=== PATIENT | female | born 1945 | race Caucasian/White ===

== ENCOUNTER → 2017-10-23 | Outpatient (CLI) | payer MEDICARE, OTHER, BC | END | disposition home or self-care (01) | LOC: HKI 11:10 | DX: M22.2X2 Patellofemoral disorders, left knee (principal); M76.32 Iliotibial band syndrome, left leg | CPT/HCPCS: 73564; 73564-50 ==

== ENCOUNTER → 2017-12-18 | Outpatient (CLI) | payer MEDICARE, OTHER | END | disposition home or self-care (01) | LOC: HKI 11:03 | DX: M23.252 Derangement of posterior horn of lateral meniscus due to old tear or injury, left knee (principal); M94.262 Chondromalacia, left knee; M25.462 Effusion, left knee | CPT/HCPCS: 20610 ==

== ENCOUNTER → 2018-01-23 | Outpatient (CLI) | payer MEDICARE, OTHER | END | disposition home or self-care (01) | LOC: HKI 11:05 | DX: M25.562 Pain in left knee (principal); M25.561 Pain in right knee | CPT/HCPCS: G0463 ==

== ENCOUNTER 2019-01-01 08:12 | Inpatient (IN) | payer MEDICARE, BC ==
[2019-01-01] MEDS: TRANEXAMIC ACID 1GM/100ML(PMX) 100 ML AT CLOSURE X1 IVPB ×2 (06:00→16:41)
[~2019-01-01 08:12] MED LIST: CLINDAMYCIN 600 MG/D5W (PMX) 50 ML IVPB
[2019-01-01] MEDS: ACETAMINOPHEN 1000MG/100ML IV 100 ML IVPB (11:03)
[2019-01-01] MEDS: DEXAMETHASONE 4 MG/ML 1 ML INJ IV (11:04)
[2019-01-01] MEDS: LACTATED RINGER'S 1,000 ML IV ×2 (11:04→15:05)
[2019-01-01] MEDS: TRANEXAMIC ACID 1GM/100ML(PMX) 100 ML AT INCISION X1 IVPB ×2 (11:43→12:23)
[2019-01-01] MEDS ORDERED: FENTAnyl 50 MCG/ML VIAL (11:49)
[2019-01-01] MEDS ORDERED: ROPIVACAINE 0.5 % 30 ML VIAL (11:49)
[2019-01-01] MEDS ORDERED: MIDAZOLAM 1 MG/ML 2 ML INJ (11:49)
[2019-01-01] MEDS ORDERED: PROPOFOL 100 ML (11:49)
[2019-01-01] MEDS ORDERED: HETASTARCH 6% NACL 500 ML (13:10)
[2019-01-01] MEDS ORDERED: ONDANSETRON 4 MG INJ (13:22)
[2019-01-01] MEDS ORDERED: METOCLOPRAMIDE 10 MG INJ (13:22)
[2019-01-01] MEDS ORDERED: KETOROLAC 30 MG INJ (13:22)
[2019-01-01] MEDS ORDERED: DEXAMETHASONE 4 MG/ML 5 ML INJ (13:22)
[2019-01-01] MEDS: POLYMYXIN B 500000 UNIT INJ IRR (13:27)
[2019-01-01] MEDS: BACITRACIN 50000 UNITS INJ IRR (13:27)
[2019-01-01] MEDS ORDERED: HYDROmorphONE 1 MG/5 ML IV SYRINGE IV ×3 (14:00)
[2019-01-01] MEDS ORDERED: OXYCODONE/ACETAMINOPHEN (5/325) TAB PO (14:00)
[2019-01-01] MEDS ORDERED: ONDANSETRON 4 MG INJ IV ×2 (14:00)
[2019-01-01] MEDS ORDERED: NALOXONE (0.4 MG/ML) INJ IV ×2 (14:00→15:30)
[2019-01-01] MEDS ORDERED: morphine 2 MG INJ IV ×2 (14:00)
[2019-01-01] MEDS ORDERED: EPHEDrine 25 MG/5 ML SYG IV (14:00)
[2019-01-01] MEDS ORDERED: HYDROCODONE/APAP (5/325) TAB PO (14:00)
[2019-01-01] MEDS ORDERED: FENTAnyl 50 MCG/ML VIAL IV ×3 (14:00)
[2019-01-01] MEDS ORDERED: NALBUPHINE HCL (10 MG/1 ML) INJ IV (14:00)
[2019-01-01] MEDS ORDERED: ACETAMINOPHEN 500 MG TAB PO (14:00)
[2019-01-01] MEDS ORDERED: DIPHENHYDRAMINE 50 MG INJ IV ×2 (14:00)
[2019-01-01] MEDS ORDERED: LABETALOL HCL 20MG INJ IV (14:00)
[2019-01-01] MEDS ORDERED: MEPERIDINE 25 MG INJ IV (14:00)
[2019-01-01] MEDS ORDERED: HYDROmorphONE 0.5 MG/0.5 ML SYG IV ×2 (14:00)
[2019-01-01] MEDS ORDERED: METOCLOPRAMIDE 10 MG INJ IV (14:00)
[2019-01-01] MEDS ORDERED: KETOROLAC 15 MG INJ IV ×2 (14:00→15:30)
[2019-01-01] MEDS ORDERED: hydrALAzine 20 MG INJ IV (14:00)
[2019-01-01] MEDS ORDERED: TRANEXAMIC ACID 1 GM/100 ML (14:02)
[2019-01-01] MEDS ORDERED: POLYMYXIN B 500000 UNIT INJ (14:53)
[2019-01-01] MEDS ORDERED: BACITRACIN 50000 UNITS INJ (14:54)
[2019-01-01] MEDS ORDERED: PHENYLephrine (100 MCG/ML) 10ML SYG (15:04)
[2019-01-01] MEDS ORDERED: EPHEDrine 25 MG/5 ML SYG (15:04)
[2019-01-01] MEDS ORDERED: PROPOFOL 20 ML (15:10)
[2019-01-01] MEDS: CLINDAMYCIN 900 MG/D5W (PMX) 50 ML IVPB ×2 (15:30→23:33)
[2019-01-01] MEDS ORDERED: MAGNESIUM HYDROXIDE 30ML CUP PO (15:30)
[2019-01-01] MEDS ORDERED: oxyCODONE 5 MG TAB PO ×2 (15:30)
[2019-01-01] MEDS ORDERED: DEXTROSE 50% 50 ML SYRINGE IV ×2 (19:00)
[2019-01-01] MEDS ORDERED: GLUCOSE GEL 15 GRAM TUBE PO ×2 (19:00)
[2019-01-01] MEDS ORDERED: GLUCAGON 1 MG INJ IM (19:00)
[2019-01-01] MEDS ORDERED: GLUCOSE GEL 15 GRAM TUBE BUCCAL (19:00)
[2019-01-01] MEDS: GABAPENTIN 100 MG CAP PO (20:07)
[2019-01-01] MEDS: INSULIN ASPART [NOVOLOG] 3 ML PEN SC (20:49)
[2019-01-01] MEDS: ACETAMINOPHEN 500 MG TAB PO ×2 (21:21→22:25)
[2019-01-02] MEDS: LACTATED RINGER'S 1,000 ML IV ×2 (01:25→16:05)
[2019-01-02 05:06] LABS: ADD MAN DIFF? NO
[2019-01-02 05:08] LABS: BASOPHILS % 0.1 % (0.0-2.0); HEMATOCRIT 28.8 % (37.0-47.0); HEMOGLOBIN 9.4 g/dl (12.0-16.0); LYMPHOCYTES # 0.8 10^3/ul (0.8-2.9); MEAN CORPUSCULAR HEMOGLOBIN 28.7 pg (29.0-33.0); MEAN CORPUSCULAR HGB CONC 32.6 g/dl (32.0-37.0); MEAN CORPUSCULAR VOLUME 87.8 fl (82.0-101.0); MEAN PLATELET VOLUME 11.5 fl (7.4-10.4); MONOCYTE # 0.6 10^3/ul (0.3-0.9); MONOCYTES % 4.8 % (0.0-11.0); NEUTROPHIL # 10.3 10^3/ul (1.6-7.5); NEUTROPHILS % 87.6 % (39.0-77.0); PLATELET COUNT 208 10^3/UL (140-415); RED BLOOD COUNT 3.28 10^6/ul (4.20-5.40); RED CELL DISTRIBUTION WIDTH 14.9 % (11.5-14.5)
[2019-01-02 05:08] LABS: WHITE BLOOD COUNT 11.8 10^3/ul (4.8-10.8)
[2019-01-02 05:32] LABS: ANION GAP 4 (5-13); BLOOD UREA NITROGEN 19 mg/dl (7-20); CALCIUM 8.7 mg/dl (8.4-10.2); CARBON DIOXIDE 26 mmol/L (21-31); CHLORIDE 110 mmol/L (97-110); CREATININE 0.84 mg/dl (0.44-1.00); GLUCOSE 160 mg/dl (70-220); SODIUM 140 mmol/L (135-144)
[2019-01-02] MEDS: CLINDAMYCIN 900 MG/D5W (PMX) 50 ML IVPB (06:47)
[2019-01-02] MEDS: INSULIN ASPART [NOVOLOG] 3 ML PEN SC ×4 (07:50→21:00)
[2019-01-02] MEDS: ACCU-CHEK XX ×4 (08:15→21:00)
[2019-01-02] MEDS: DOCUSATE SODIUM 100 MG CAP PO ×2 (08:18→21:00)
[2019-01-02] MEDS: ASPIRIN (EC) 81 MG TAB PO ×2 (08:19→22:53)
[2019-01-02] MEDS: metFORMIN 500 MG TAB PO ×2 (08:19→17:46)
[2019-01-02] MEDS ORDERED: TURMERIC ROOT EXTRACT 1000 MG PO (09:00)
[2019-01-02] MEDS ORDERED: TELMISARTAN AMLODIPINE PO (09:00)
[2019-01-02] MEDS ORDERED: CELECOXIB 100 MG CAP PO (09:00)
[2019-01-02] MEDS: ACETAMINOPHEN 500 MG TAB PO ×2 (12:42→22:34)
[2019-01-02] MEDS ORDERED: ONDANSETRON 4 MG INJ IV (15:30)
[2019-01-02] MEDS: IBUPROFEN 600 MG TAB PO (18:15)
[2019-01-03] MEDS: LACTATED RINGER'S 1,000 ML IV ×2 (04:35→16:33)
[2019-01-03] MEDS: PANTOPRAZOLE (EC) 40 MG TAB PO (07:15)
[2019-01-03] MEDS: ACETAMINOPHEN 500 MG TAB PO ×3 (07:15→18:27)
[2019-01-03] MEDS: INSULIN ASPART [NOVOLOG] 3 ML PEN SC ×4 (07:50→20:25)
[2019-01-03] MEDS: ACCU-CHEK XX ×4 (08:30→21:00)
[2019-01-03] MEDS: metFORMIN 500 MG TAB PO ×2 (08:33→18:02)
[2019-01-03] MEDS: ASPIRIN (EC) 81 MG TAB PO ×3 (08:33→22:35)
[2019-01-03] MEDS: DOCUSATE SODIUM 100 MG CAP PO ×2 (08:35→20:22)
[2019-01-03 08:38] LABS: ADD MAN DIFF? NO
[2019-01-03 08:47] LABS: WHITE BLOOD COUNT 7.9 10^3/ul (4.8-10.8)
[2019-01-03 08:47] LABS: BASOPHIL # 0.1 10^3/ul (0.0-0.1); BASOPHILS % 0.6 % (0.0-2.0); EOSINOPHILS # 0.1 10^3/ul (0.0-0.5); HEMATOCRIT 27.5 % (37.0-47.0); HEMOGLOBIN 8.8 g/dl (12.0-16.0); LYMPHOCYTES # 1.3 10^3/ul (0.8-2.9); LYMPHOCYTES % 16.3 % (15.0-51.0); MEAN CORPUSCULAR HEMOGLOBIN 28.2 pg (29.0-33.0); MEAN CORPUSCULAR VOLUME 88.1 fl (82.0-101.0); MEAN PLATELET VOLUME 12.6 fl (7.4-10.4); MONOCYTE # 0.6 10^3/ul (0.3-0.9); MONOCYTES % 7.1 % (0.0-11.0); NEUTROPHIL # 5.9 10^3/ul (1.6-7.5); NEUTROPHILS % 74.6 % (39.0-77.0); PLATELET COUNT 186 10^3/UL (140-415); RED BLOOD COUNT 3.12 10^6/ul (4.20-5.40); RED CELL DISTRIBUTION WIDTH 15.1 % (11.5-14.5)
[2019-01-03 09:04] LABS: ANION GAP 4 (5-13); BLOOD UREA NITROGEN 24 mg/dl (7-20); CALCIUM 8.4 mg/dl (8.4-10.2); CARBON DIOXIDE 27 mmol/L (21-31); CHLORIDE 106 mmol/L (97-110); CREATININE 0.92 mg/dl (0.44-1.00); GLUCOSE 130 mg/dl (70-220); POTASSIUM 3.9 mmol/L (3.5-5.1); SODIUM 137 mmol/L (135-144)
[2019-01-03] MEDS ORDERED: DIPHENHYDRAMINE 25 MG CAP PO (11:30)
[2019-01-03] MEDS: IBUPROFEN 600 MG TAB PO ×2 (13:03→22:02)
[2019-01-03] MEDS: GABAPENTIN 300 MG CAP PO (22:03)
[2019-01-03] MEDS: NACL 0.9% 3 ML SYG IV (22:35)
[2019-01-04 04:58] LABS: ADD MAN DIFF? NO
[2019-01-04 05:17] LABS: WHITE BLOOD COUNT 7.4 10^3/ul (4.8-10.8)
[2019-01-04 05:17] LABS: BASOPHIL # 0.1 10^3/ul (0.0-0.1); BASOPHILS % 1.2 % (0.0-2.0); EOSINOPHILS # 0.3 10^3/ul (0.0-0.5); HEMATOCRIT 28.2 % (37.0-47.0); LYMPHOCYTES % 26.8 % (15.0-51.0); MEAN CORPUSCULAR HEMOGLOBIN 28.6 pg (29.0-33.0); MEAN CORPUSCULAR HGB CONC 31.9 g/dl (32.0-37.0); MEAN CORPUSCULAR VOLUME 89.5 fl (82.0-101.0); MEAN PLATELET VOLUME 12.4 fl (7.4-10.4); MONOCYTE # 0.8 10^3/ul (0.3-0.9); MONOCYTES % 10.1 % (0.0-11.0); NEUTROPHIL # 4.3 10^3/ul (1.6-7.5); NEUTROPHILS % 57.6 % (39.0-77.0); PLATELET COUNT 201 10^3/UL (140-415); RED BLOOD COUNT 3.15 10^6/ul (4.20-5.40); RED CELL DISTRIBUTION WIDTH 15.6 % (11.5-14.5)
[2019-01-04] MEDS: LACTATED RINGER'S 1,000 ML IV (05:35)
[2019-01-04 05:57] LABS: ANION GAP 1 (5-13); BLOOD UREA NITROGEN 19 mg/dl (7-20); CALCIUM 8.7 mg/dl (8.4-10.2); CARBON DIOXIDE 29 mmol/L (21-31); CHLORIDE 108 mmol/L (97-110); CREATININE 0.95 mg/dl (0.44-1.00); GLUCOSE 116 mg/dl (70-220); SODIUM 138 mmol/L (135-144)
[2019-01-04] MEDS: PANTOPRAZOLE (EC) 40 MG TAB PO (07:31)
[2019-01-04] MEDS: IBUPROFEN 600 MG TAB PO ×2 (07:32→17:40)
[2019-01-04] MEDS: INSULIN ASPART [NOVOLOG] 3 ML PEN SC ×4 (07:50→21:00)
[2019-01-04] MEDS: ACCU-CHEK XX ×4 (08:25→21:00)
[2019-01-04] MEDS: ASPIRIN (EC) 81 MG TAB PO ×2 (08:47→20:09)
[2019-01-04] MEDS: metFORMIN 500 MG TAB PO ×2 (08:47→17:39)
[2019-01-04] MEDS: LOSARTAN 50 MG TAB PO (08:48)
[2019-01-04] MEDS: DOCUSATE SODIUM 100 MG CAP PO ×2 (08:48→20:09)
[2019-01-04] MEDS: AMLODIPINE 5 MG TAB PO (08:48)
[2019-01-04] MEDS: ACETAMINOPHEN 500 MG TAB PO ×2 (12:06→20:09)
[2019-01-05] MEDS: IBUPROFEN 600 MG TAB PO ×3 (00:04→12:19)
[2019-01-05 05:26] LABS: ADD MAN DIFF? NO
[2019-01-05 05:28] LABS: BASOPHIL # 0.1 10^3/ul (0.0-0.1); BASOPHILS % 0.6 % (0.0-2.0); EOSINOPHILS # 0.5 10^3/ul (0.0-0.5); EOSINOPHILS % 5.6 % (0.0-7.0); HEMATOCRIT 28.5 % (37.0-47.0); HEMOGLOBIN 9.3 g/dl (12.0-16.0); LYMPHOCYTES % 24.5 % (15.0-51.0); MEAN CORPUSCULAR HEMOGLOBIN 28.8 pg (29.0-33.0); MEAN CORPUSCULAR HGB CONC 32.6 g/dl (32.0-37.0); MEAN CORPUSCULAR VOLUME 88.2 fl (82.0-101.0); MEAN PLATELET VOLUME 12.7 fl (7.4-10.4); MONOCYTE # 0.8 10^3/ul (0.3-0.9); MONOCYTES % 9.3 % (0.0-11.0); NEUTROPHIL # 4.9 10^3/ul (1.6-7.5); NEUTROPHILS % 59.8 % (39.0-77.0); PLATELET COUNT 224 10^3/UL (140-415); RED BLOOD COUNT 3.23 10^6/ul (4.20-5.40); RED CELL DISTRIBUTION WIDTH 15.3 % (11.5-14.5)
[2019-01-05 05:28] LABS: WHITE BLOOD COUNT 8.2 10^3/ul (4.8-10.8)
[2019-01-05 06:17] LABS: ANION GAP 4 (5-13); BLOOD UREA NITROGEN 16 mg/dl (7-20); CALCIUM 8.8 mg/dl (8.4-10.2); CARBON DIOXIDE 27 mmol/L (21-31); CHLORIDE 108 mmol/L (97-110); CREATININE 0.95 mg/dl (0.44-1.00); GLUCOSE 118 mg/dl (70-220); POTASSIUM 4.3 mmol/L (3.5-5.1); SODIUM 139 mmol/L (135-144)
[2019-01-05] MEDS: INSULIN ASPART [NOVOLOG] 3 ML PEN SC ×2 (07:50→11:40)
[2019-01-05] MEDS: ACCU-CHEK XX ×3 (08:20→17:25)
[2019-01-05] MEDS: ASPIRIN (EC) 81 MG TAB PO (08:24)
[2019-01-05] MEDS: PANTOPRAZOLE (EC) 40 MG TAB PO (08:24)
[2019-01-05] MEDS: metFORMIN 500 MG TAB PO ×2 (08:24→17:25)
[2019-01-05] MEDS: ACETAMINOPHEN 500 MG TAB PO ×2 (08:24→16:03)
[2019-01-05] MEDS: LOSARTAN 50 MG TAB PO (08:25)
[2019-01-05] MEDS: AMLODIPINE 5 MG TAB PO (08:25)
== END 2019-01-05 17:40 | DRG 462 ==
LOC: REC 08:12 → MS1 17:46
PROVIDERS: Orthopaedic Surgery
PROC: 0SRD0J9 Replacement of Left Knee Joint with Synthetic Substitute, Cemented, Open Approach (ICD-10-PCS; principal; 2019-01-01 10:30)
PROC: 0SRC0J9 Replacement of Right Knee Joint with Synthetic Substitute, Cemented, Open Approach (ICD-10-PCS; 2019-01-01 10:30)
DX: M17.0 Bilateral primary osteoarthritis of knee (principal); E11.9 Type 2 diabetes mellitus without complications; I10 Essential (primary) hypertension
CPT/HCPCS: 71045; 73560; 80048; 82962; 85025; 86850; 86900; 86901; 87081; 88304; 88311; 97110; 97116; 97162; 97165; 97530